=== PATIENT | female | born 1955 ===

== ENCOUNTER 2020-12-25 16:56 | Inpatient (IN) | payer MEDICARE ==
[~2020-12-25] VITALS: Ht 160 cm; Wt 90.7 kg
[2020-12-25] MEDS ORDERED: ASPIRIN 81 MG CHEW TAB PO ONE (17:15)
[2020-12-25 17:28] LABS: BASOPHILS % 0.3 % (0.0-1.0); HEMATOCRIT 38.2 % (34.2-44.1); HEMOGLOBIN 11.9 g/dL (12.0-16.0); LYMPHOCYTES # (AUTO) 0.8 (1.0-3.2); LYMPHOCYTES % 6.6 % (18.0-39.1); MEAN CORPUSCULAR HEMOGLOBIN 27.8 pg (28-32); MEAN CORPUSCULAR HGB CONC 31.2 g/dL (31-35); MEAN CORPUSCULAR VOLUME 89.3 fL (81-99); MONOCYTES # (AUTO) 1.2 (0.2-0.8); MONOCYTES % 10.2 % (4.4-11.3); NEUTROPHILS # (AUTO) 9.3 (2.1-6.9); NEUTROPHILS % 80.8 % (38.7-80.0); PLATELET COUNT 517 x10e3/uL (140-360); RED BLOOD COUNT 4.28 x10e6/uL (3.6-5.1); RED CELL DISTRIBUTION WIDTH 12.6 % (11.7-14.4)
[2020-12-25] MEDS ORDERED: SODIUM CHLORIDE 0.9% 1000ML 1,000 ML IV STA (17:37)
[2020-12-25 17:46] LABS: ABG PH 7.27 (7.35-7.45)
[2020-12-25 17:47] LABS: ABG HCO3 7 mmol/L (22-26); ABG PCO2 16 mmHg (35-45); ABG PO2 274 mmHg (80-105); ABG TCO2 8
[2020-12-25 17:49] LABS: CLARITY,URINE HAZY (CLEAR); COLOR,URINE YELLOW (YELLOW)
[2020-12-25 17:50] LABS: KETONES,URINE 1+ (NEGATIVE); LEUKOCYTE ESTERASE ,URINE LARGE (NEGATIVE); NITRITE,URINE NEGATIVE (NEGATIVE); PROTEIN,URINE DIPSTICK 2+ (NEGATIVE); URINE UROBILINOGEN 0.2 mg/dL (0.2 - 1)
[2020-12-25 17:51] LABS: ALBUMIN 3.1 g/dL (3.5-5.0); ALBUMIN/GLOBULIN RATIO 0.5 (0.8-2.0); ALKALINE PHOSPHATASE 95 IU/L (40-150); ANION GAP 39.7 mmol/L (8-16); BLOOD UREA NITROGEN 43 mg/dL (7-26); BUN/CREATININE RATIO 14 (6-25); CALCIUM 9.9 mg/dL (8.4-10.2); CHLORIDE 91 mmol/L (98-107); CREATINE KINASE 57 IU/L (29-168); CREATININE, SERUM 3.12 mg/dL (0.57-1.11); EST GLOMERULAR FILTRATION RATE 15 ML/MIN (60-); POTASSIUM 5.7 mmol/L (3.5-5.1); SODIUM 132 mmol/L (136-145)
[2020-12-25 17:54] LABS: ALANINE AMINOTRANSFERASE < 6 IU/L (0-55); BACTERIA,URINE MANY /HPF; EPITHELIAL CELLS,URINE FEW /LPF; WBC,URINE (MAN) >50 /HPF (0-5)
[2020-12-25 17:55] LABS: AMORPHOUS SEDIMENT,URINE MODERATE (FEW); CARBON DIOXIDE 7 mmol/L (22-29); MUCUS,URINE MANY (RARE); RBC,URINE 21-50 /HPF (0-5)
[2020-12-25 17:56] LABS: GLUCOSE 775 mg/dL (74-118); YEAST,URINE MODERATE
[2020-12-25] MEDS ORDERED: SODIUM CHLORIDE 0.9% 1000ML 1,000 ML IV ONE (18:00)
[2020-12-25 18:03] LABS: BAND NEUTROPHILS % (MANUAL) 3 %; LYMPHOCYTES % (MANUAL) 8 % (19-48); MONOCYTES % (MANUAL) 1 % (3.4-9.0); MYELOCYTES % (MANUAL) 2 % (0-0); NEUTROPHILS % (MANUAL) 86 % (40-74); NUCLEATED RED BLOOD CELLS 1
[2020-12-25 18:04] LABS: PLATELET ESTIMATE ADEQUATE; PLATELET MORPHOLOGY COMMENT NORMAL; RBC MORPHOLOGY COMMENT NORMAL
[2020-12-25] MEDS ORDERED: DEXTROSE 5%/0.45% SOD CHL 1,000 ML IV SCH (18:15)
[2020-12-25] MEDS ORDERED: ZOLPIDEM TARTRATE 5 MG TAB PO PRN (18:15)
[2020-12-25] MEDS ORDERED: MAGNESIUM SULF 1GRAM/DEXTROSE 100 ML IV PRN (18:15)
[2020-12-25] MEDS ORDERED: POTASSIUM CHLORIDE 20MEQ/100ML 200 ML IV PRN (18:15)
[2020-12-25] MEDS ORDERED: POTASSIUM CHLORIDE 20MEQ/100ML 100 ML INJ PRN (18:15)
[2020-12-25] MEDS ORDERED: INSULIN REGULAR, HUMAN 3ML VL 100 UNIT in SODIUM CHLORIDE 0.9% 100 ML IV SCH ×2 (18:15)
[2020-12-25] MEDS ORDERED: ACETAMINOPHEN 325 MG TAB PO PRN (18:15)
[2020-12-25] MEDS: SODIUM CHLORIDE 0.9% 1000ML 1,000 ML IV SCH ×2 (18:33→22:15)
[2020-12-25] MEDS ORDERED: INSULIN REGULAR, HUMAN 100 UNIT/1 ML ONE (18:48)
[2020-12-25] MEDS ORDERED: SODIUM CHLORIDE 0.9% 100 ML ONE (18:48)
[2020-12-25] MEDS ORDERED: SODIUM CHLORIDE 0.9% 1000ML 1,000 ML IV SCH (19:00)
[2020-12-25] MEDS: CEFEPIME 1 GM in SODIUM CHLORIDE 0.9% 50ML 50 ML IV SCH (20:37)
[2020-12-25] MEDS: HEPARIN SOD (PORCINE) 5,000 UNIT/ML VIAL SC SCH (20:44)
[2020-12-25 20:55] LABS: ANION GAP 29.8 mmol/L (8-16); CALCIUM 8.6 mg/dL (8.4-10.2); CREATININE, SERUM 2.33 mg/dL (0.57-1.11); MAGNESIUM 1.3 MG/DL (1.3-2.1); POTASSIUM 3.8 mmol/L (3.5-5.1)
[2020-12-26 01:03] LABS: ALBUMIN 2.5 g/dL (3.5-5.0); ALBUMIN/GLOBULIN RATIO 0.5 (0.8-2.0); ALKALINE PHOSPHATASE 75 IU/L (40-150); ANION GAP 19.8 mmol/L (8-16); BLOOD UREA NITROGEN 36 mg/dL (7-26); BUN/CREATININE RATIO 19 (6-25); CALCIUM 8.9 mg/dL (8.4-10.2); CARBON DIOXIDE 17 mmol/L (22-29); CHLORIDE 108 mmol/L (98-107); CREATININE, SERUM 1.91 mg/dL (0.57-1.11); EST GLOMERULAR FILTRATION RATE 26 ML/MIN (60-); GLUCOSE 90 mg/dL (74-118); POTASSIUM 3.8 mmol/L (3.5-5.1); SODIUM 141 mmol/L (136-145)
[2020-12-26 01:04] LABS: ALANINE AMINOTRANSFERASE < 6 IU/L (0-55)
[2020-12-26 01:31] LABS: CREATINE KINASE MB 4.2 ng/mL (0-5.0)
[2020-12-26] MEDS ORDERED: DEXTROSE 50% SYRINGE 50 ML IV ONE (03:05)
[2020-12-26 06:26] LABS: BASOPHILS % 0.3 % (0.0-1.0); EOSINOPHILS % 0.1 % (0.0-6.0); HEMATOCRIT 30.4 % (34.2-44.1); HEMOGLOBIN 9.9 g/dL (12.0-16.0); LYMPHOCYTES # (AUTO) 0.8 (1.0-3.2); LYMPHOCYTES % 5.8 % (18.0-39.1); MEAN CORPUSCULAR HEMOGLOBIN 27.7 pg (28-32); MEAN CORPUSCULAR HGB CONC 32.6 g/dL (31-35); MEAN CORPUSCULAR VOLUME 84.9 fL (81-99); MONOCYTES % 7.6 % (4.4-11.3); NEUTROPHILS # (AUTO) 11.6 (2.1-6.9); NEUTROPHILS % 84.8 % (38.7-80.0); PLATELET COUNT 420 x10e3/uL (140-360); RED BLOOD COUNT 3.58 x10e6/uL (3.6-5.1); RED CELL DISTRIBUTION WIDTH 12.3 % (11.7-14.4)
[2020-12-26 07:00] LABS: ALBUMIN 2.2 g/dL (3.5-5.0); ALBUMIN/GLOBULIN RATIO 0.5 (0.8-2.0); ALKALINE PHOSPHATASE 66 IU/L (40-150); ANION GAP 14.1 mmol/L (8-16); BLOOD UREA NITROGEN 33 mg/dL (7-26); BUN/CREATININE RATIO 21 (6-25); CALCIUM 8.7 mg/dL (8.4-10.2); CARBON DIOXIDE 20 mmol/L (22-29); CHLORIDE 109 mmol/L (98-107); CREATININE, SERUM 1.55 mg/dL (0.57-1.11); EST GLOMERULAR FILTRATION RATE 34 ML/MIN (60-); GLUCOSE 82 mg/dL (74-118); POTASSIUM 3.1 mmol/L (3.5-5.1); SODIUM 140 mmol/L (136-145)
[2020-12-26] MEDS ORDERED: DOCUSATE SODIUM 100 MG CAP PO PRN (07:00)
[2020-12-26] MEDS ORDERED: ONDANSETRON HCL INJ 2MG/ML 2ML 2 MG/ML VIAL IV PRN (07:00)
[2020-12-26 07:22] LABS: ALANINE AMINOTRANSFERASE < 6 IU/L (0-55)
[2020-12-26 08:01] LABS: CHOL/HDL RATIO 6.2 (3.0-3.6)
[2020-12-26] MEDS: DEXAMETHASONE SOD PHOS 10 MG/1 ML VIAL IV SCH (08:04)
[2020-12-26] MEDS: ZINC SULFATE 220 MG CAP PO SCH (08:04)
[2020-12-26] MEDS: CEFEPIME 1 GM in SODIUM CHLORIDE 0.9% 50ML 50 ML IV SCH ×2 (08:04→20:45)
[2020-12-26] MEDS: ASCORBIC ACID 500 MG TAB PO SCH ×2 (08:04→16:46)
[2020-12-26 09:16] LABS: INR 1.03; PROTHROMBIN TIME 13.7 seconds (11.9-14.5)
[2020-12-26 09:17] LABS: PARTIAL THROMBOPLASTIN TIME 29.7 seconds (23.8-35.5)
[2020-12-26] MEDS ORDERED: INSULIN GLARGINE 100 UNITS/ML VIAL SQ ONE (10:00)
[2020-12-26 10:27] LABS: ANION GAP 14.8 mmol/L (8-16); CALCIUM 8.7 mg/dL (8.4-10.2); CREATININE, SERUM 1.38 mg/dL (0.57-1.11); MAGNESIUM 1.3 MG/DL (1.3-2.1); POTASSIUM 3.8 mmol/L (3.5-5.1)
[2020-12-26 10:45] LABS: CREATINE KINASE MB 5.1 ng/mL (0-5.0)
[2020-12-26] MEDS: HEPARIN SOD (PORCINE) 5,000 UNIT/ML VIAL SC SCH ×2 (13:07→20:45)
[2020-12-26] MEDS: INSULIN ASPART 70/30 100 UNITS/ML VIAL SC SCH ×2 (13:08→16:40)
[2020-12-26 13:16] VITALS: BP 142/96
[2020-12-26] MEDS ORDERED: TOPIRAMATE25 MG PO (14:16)
[2020-12-26] MEDS ORDERED: CYCLOBENZAPRINE10 MG PO (14:16)
[2020-12-26] MEDS ORDERED: PROTONIX20 MG PO (14:16)
[2020-12-26] MEDS ORDERED: METOPROLOL TART25 MG PO (14:16)
[2020-12-26] MEDS ORDERED: ATORVASTATIN CA20 MG PO (14:16)
[2020-12-26] MEDS ORDERED: SUMATRIPTAN SUC25 MG PO (14:16)
[2020-12-26 14:47] VITALS: BP 121/87
[2020-12-26 14:48] LABS: CALCIUM 8.9 mg/dL (8.4-10.2); CREATININE, SERUM 1.43 mg/dL (0.57-1.11); MAGNESIUM 1.3 MG/DL (1.3-2.1)
[2020-12-26 15:47] VITALS: BP 121/87
[2020-12-26 16:17] LABS: ABG HCO3 18 mmol/L (22-26); ABG PCO2 34 mmHg (35-45); ABG PH 7.33 (7.35-7.45); ABG PO2 160 mmHg (80-105); ABG TCO2 19
[2020-12-26] MEDS: METOPROLOL TARTRATE 25 MG TAB PO SCH (16:45)
[2020-12-26] MEDS ORDERED: SODIUM CHLORIDE 0.9% 50ML 50 ML ONE (17:08)
[2020-12-26 19:20] VITALS: BP 148/76
[2020-12-26 20:45] VITALS: BP 148/76
[2020-12-27] VITALS (8 sets, daily range): BP systolic 134–150; BP diastolic 79–98
[2020-12-27 05:40] LABS: BASOPHILS % 0.2 % (0.0-1.0); HEMATOCRIT 33.5 % (34.2-44.1); HEMOGLOBIN 10.9 g/dL (12.0-16.0); LYMPHOCYTES # (AUTO) 0.9 (1.0-3.2); LYMPHOCYTES % 8.5 % (18.0-39.1); MEAN CORPUSCULAR HEMOGLOBIN 27.5 pg (28-32); MEAN CORPUSCULAR HGB CONC 32.5 g/dL (31-35); MEAN CORPUSCULAR VOLUME 84.6 fL (81-99); MONOCYTES # (AUTO) 0.6 (0.2-0.8); MONOCYTES % 5.1 % (4.4-11.3); NEUTROPHILS # (AUTO) 9.3 (2.1-6.9); NEUTROPHILS % 84.5 % (38.7-80.0); PLATELET COUNT 436 x10e3/uL (140-360); RED BLOOD COUNT 3.96 x10e6/uL (3.6-5.1); RED CELL DISTRIBUTION WIDTH 12.4 % (11.7-14.4)
[2020-12-27 06:09] LABS: ALBUMIN 2.3 g/dL (3.5-5.0); ALBUMIN/GLOBULIN RATIO 0.5 (0.8-2.0); ALKALINE PHOSPHATASE 80 IU/L (40-150); ANION GAP 21.9 mmol/L (8-16); BLOOD UREA NITROGEN 29 mg/dL (7-26); BUN/CREATININE RATIO 24 (6-25); CALCIUM 8.9 mg/dL (8.4-10.2); CARBON DIOXIDE 18 mmol/L (22-29); CHLORIDE 101 mmol/L (98-107); CREATININE, SERUM 1.23 mg/dL (0.57-1.11); EST GLOMERULAR FILTRATION RATE 44 ML/MIN (60-); GLUCOSE 387 mg/dL (74-118); POTASSIUM 3.9 mmol/L (3.5-5.1); SODIUM 137 mmol/L (136-145)
[2020-12-27 06:25] LABS: ALANINE AMINOTRANSFERASE < 6 IU/L (0-55)
[2020-12-27] MEDS: DEXAMETHASONE SOD PHOS 10 MG/1 ML VIAL IV SCH (06:25)
[2020-12-27] MEDS: ZINC SULFATE 220 MG CAP PO SCH (09:19)
[2020-12-27] MEDS: CEFEPIME 1 GM in SODIUM CHLORIDE 0.9% 50ML 50 ML IV SCH ×2 (09:19→21:10)
[2020-12-27] MEDS: METOPROLOL TARTRATE 25 MG TAB PO SCH ×2 (09:19→17:17)
[2020-12-27] MEDS: ASCORBIC ACID 500 MG TAB PO SCH ×2 (09:19→17:17)
[2020-12-27] MEDS: INSULIN LISPRO 100 UNIT/1 ML 3ML VIAL SQ SCH ×3 (09:20→16:45)
[2020-12-27] MEDS: HEPARIN SOD (PORCINE) 5,000 UNIT/ML VIAL SC SCH ×2 (09:25→20:10)
[2020-12-27] MEDS: INSULIN GLARGINE 100 UNITS/ML VIAL SQ SCH (09:26)
[2020-12-27] MEDS ORDERED: REMDESIVIR 200MG/NS 100ML 200 MG in SODIUM CHLORIDE 0.9% 100 ML 100 ML IV ONE (16:00)
[2020-12-28] VITALS (8 sets, daily range): BP systolic 95–151; BP diastolic 67–98
[2020-12-28] MEDS: DEXAMETHASONE SOD PHOS 10 MG/1 ML VIAL IV SCH (06:24)
[2020-12-28] MEDS: INSULIN LISPRO 100 UNIT/1 ML 3ML VIAL SQ SCH ×3 (07:30→16:30)
[2020-12-28] MEDS: INSULIN GLARGINE 100 UNITS/ML VIAL SQ SCH (09:00)
[2020-12-28] MEDS: HEPARIN SOD (PORCINE) 5,000 UNIT/ML VIAL SC SCH ×2 (09:00→20:29)
[2020-12-28] MEDS: METOPROLOL TARTRATE 25 MG TAB PO SCH ×2 (09:31→17:23)
[2020-12-28] MEDS: CEFEPIME 1 GM in SODIUM CHLORIDE 0.9% 50ML 50 ML IV SCH ×2 (09:31→20:29)
[2020-12-28] MEDS: ASCORBIC ACID 500 MG TAB PO SCH ×2 (09:31→17:23)
[2020-12-28] MEDS: ZINC SULFATE 220 MG CAP PO SCH (09:31)
[2020-12-28 11:25] LABS: HEMATOCRIT 40.8 % (34.2-44.1); HEMOGLOBIN 13.2 g/dL (12.0-16.0); MEAN CORPUSCULAR HEMOGLOBIN 27.7 pg (28-32); MEAN CORPUSCULAR VOLUME 85.5 fL (81-99); RED BLOOD COUNT 4.77 x10e6/uL (3.6-5.1)
[2020-12-28 11:26] LABS: BASOPHILS % 0.2 % (0.0-1.0); LYMPHOCYTES % 8.6 % (18.0-39.1); MEAN CORPUSCULAR HGB CONC 32.4 g/dL (31-35); MONOCYTES # (AUTO) 0.4 (0.2-0.8); MONOCYTES % 3.7 % (4.4-11.3); NEUTROPHILS # (AUTO) 9.6 (2.1-6.9); NEUTROPHILS % 86.2 % (38.7-80.0); PLATELET COUNT 465 x10e3/uL (140-360); RED CELL DISTRIBUTION WIDTH 12.5 % (11.7-14.4)
[2020-12-28 12:09] LABS: ANION GAP 19.4 mmol/L (8-16); CALCIUM 9.7 mg/dL (8.4-10.2); CREATININE, SERUM 1.07 mg/dL (0.57-1.11); POTASSIUM 3.4 mmol/L (3.5-5.1)
[2020-12-28] MEDS ORDERED: REMDESIVIR 100MG/NS 100ML 100 MG in SODIUM CHLORIDE 0.9% 100 ML 100 ML IV SCH (14:00)
[2020-12-28] MEDS: ATORVASTATIN 40 MG TAB PO SCH (20:29)
[2020-12-28] MEDS: CYCLOBENZAPRINE HCL 10 MG TAB PO SCH (21:57)
[2020-12-29] VITALS (7 sets, daily range): BP systolic 118–153; BP diastolic 71–100
[2020-12-29] MEDS: DEXAMETHASONE SOD PHOS 10 MG/1 ML VIAL IV SCH (05:26)
[2020-12-29] MEDS: ZINC SULFATE 220 MG CAP PO SCH (09:42)
[2020-12-29] MEDS: METOPROLOL TARTRATE 25 MG TAB PO SCH ×2 (09:42→17:47)
[2020-12-29] MEDS: ASPIRIN 81 MG ENTERIC COATED PO SCH (09:42)
[2020-12-29] MEDS: CLOPIDOGREL BISULFATE 75 MG TAB PO SCH (09:42)
[2020-12-29] MEDS: CEFEPIME 1 GM in SODIUM CHLORIDE 0.9% 50ML 50 ML IV SCH ×2 (09:42→21:00)
[2020-12-29] MEDS: ASCORBIC ACID 500 MG TAB PO SCH ×2 (09:42→17:47)
[2020-12-29] MEDS: INSULIN GLARGINE 100 UNITS/ML VIAL SQ SCH (09:43)
[2020-12-29] MEDS: INSULIN LISPRO 100 UNIT/1 ML 3ML VIAL SQ SCH ×3 (09:45→17:47)
[2020-12-29] MEDS: HEPARIN SOD (PORCINE) 5,000 UNIT/ML VIAL SC SCH ×2 (09:45→21:00)
[2020-12-29] MEDS: ATORVASTATIN 40 MG TAB PO SCH (21:00)
[2020-12-29] MEDS: CYCLOBENZAPRINE HCL 10 MG TAB PO SCH (21:00)
[2020-12-30] VITALS (9 sets, daily range): BP systolic 100–125; BP diastolic 58–99
[2020-12-30] MEDS: INSULIN LISPRO 100 UNIT/1 ML 3ML VIAL SQ SCH ×3 (07:30→16:30)
[2020-12-30] MEDS: DEXAMETHASONE SOD PHOS 10 MG/1 ML VIAL IV SCH (09:00)
[2020-12-30] MEDS: CEFEPIME 1 GM in SODIUM CHLORIDE 0.9% 50ML 50 ML IV SCH ×2 (09:00→22:23)
[2020-12-30] MEDS: HEPARIN SOD (PORCINE) 5,000 UNIT/ML VIAL SC SCH ×2 (09:00→22:25)
[2020-12-30] MEDS: INSULIN GLARGINE 100 UNITS/ML VIAL SQ SCH (09:00)
[2020-12-30] MEDS: ASPIRIN 81 MG ENTERIC COATED PO SCH (09:49)
[2020-12-30] MEDS: ASCORBIC ACID 500 MG TAB PO SCH ×2 (09:49→17:10)
[2020-12-30] MEDS: CLOPIDOGREL BISULFATE 75 MG TAB PO SCH (09:49)
[2020-12-30] MEDS: ZINC SULFATE 220 MG CAP PO SCH (09:49)
[2020-12-30] MEDS: METOPROLOL TARTRATE 25 MG TAB PO SCH ×2 (09:49→17:11)
[2020-12-30] MEDS: REMDESIVIR 100MG/NS 100ML 100 MG in SODIUM CHLORIDE 0.9% 100 ML 100 ML IV SCH (15:14)
[2020-12-30 15:29] LABS: BASOPHILS % 0.3 % (0.0-1.0); HEMATOCRIT 38.2 % (34.2-44.1); HEMOGLOBIN 12.1 g/dL (12.0-16.0); LYMPHOCYTES # (AUTO) 1.3 (1.0-3.2); LYMPHOCYTES % 9.3 % (18.0-39.1); MEAN CORPUSCULAR HEMOGLOBIN 27.6 pg (28-32); MEAN CORPUSCULAR HGB CONC 31.7 g/dL (31-35); MONOCYTES # (AUTO) 0.6 (0.2-0.8); MONOCYTES % 4.3 % (4.4-11.3); NEUTROPHILS # (AUTO) 11.8 (2.1-6.9); NEUTROPHILS % 82.1 % (38.7-80.0); PLATELET COUNT 364 x10e3/uL (140-360); RED BLOOD COUNT 4.39 x10e6/uL (3.6-5.1); RED CELL DISTRIBUTION WIDTH 12.5 % (11.7-14.4)
[2020-12-30 15:49] LABS: ALANINE AMINOTRANSFERASE < 6 IU/L (0-55); ALBUMIN 2.3 g/dL (3.5-5.0); ALBUMIN/GLOBULIN RATIO 0.5 (0.8-2.0); ALKALINE PHOSPHATASE 83 IU/L (40-150); BLOOD UREA NITROGEN 50 mg/dL (7-26); BUN/CREATININE RATIO 45 (6-25); CALCIUM 8.9 mg/dL (8.4-10.2); CARBON DIOXIDE 22 mmol/L (22-29); CHLORIDE 100 mmol/L (98-107); CREATININE, SERUM 1.11 mg/dL (0.57-1.11); EST GLOMERULAR FILTRATION RATE 49 ML/MIN (60-); GLUCOSE 255 mg/dL (74-118); SODIUM 137 mmol/L (136-145)
[2020-12-30] MEDS: ATORVASTATIN 40 MG TAB PO SCH (22:23)
[2020-12-30] MEDS: CYCLOBENZAPRINE HCL 10 MG TAB PO SCH (22:23)
[2020-12-31] VITALS (8 sets, daily range): BP systolic 119–137; BP diastolic 58–93
[2020-12-31] MEDS: DEXAMETHASONE SOD PHOS 10 MG/1 ML VIAL IV SCH (05:30)
[2020-12-31] MEDS: INSULIN LISPRO 100 UNIT/1 ML 3ML VIAL SQ SCH ×3 (08:15→17:20)
[2020-12-31] MEDS: INSULIN GLARGINE 100 UNITS/ML VIAL SQ SCH (08:15)
[2020-12-31] MEDS: HEPARIN SOD (PORCINE) 5,000 UNIT/ML VIAL SC SCH ×2 (08:15→20:53)
[2020-12-31 08:33] LABS: ANION GAP 15.6 mmol/L (8-16); CALCIUM 8.5 mg/dL (8.4-10.2); CREATININE, SERUM 0.82 mg/dL (0.57-1.11); POTASSIUM 4.6 mmol/L (3.5-5.1)
[2020-12-31] MEDS: CEFEPIME 1 GM in SODIUM CHLORIDE 0.9% 50ML 50 ML IV SCH ×2 (09:00→20:49)
[2020-12-31] MEDS: ASPIRIN 81 MG ENTERIC COATED PO SCH (09:09)
[2020-12-31] MEDS: METOPROLOL TARTRATE 25 MG TAB PO SCH ×2 (09:10→17:03)
[2020-12-31] MEDS: ASCORBIC ACID 500 MG TAB PO SCH ×2 (09:11→17:03)
[2020-12-31] MEDS: CLOPIDOGREL BISULFATE 75 MG TAB PO SCH (09:11)
[2020-12-31] MEDS: ZINC SULFATE 220 MG CAP PO SCH (09:11)
[2020-12-31] MEDS: REMDESIVIR 100MG/NS 100ML 100 MG in SODIUM CHLORIDE 0.9% 100 ML 100 ML IV SCH (15:03)
[2020-12-31] MEDS: CYCLOBENZAPRINE HCL 10 MG TAB PO SCH (20:50)
[2020-12-31] MEDS: ATORVASTATIN 40 MG TAB PO SCH (20:50)
[2021-01-01] VITALS (9 sets, daily range): BP systolic 100–136; BP diastolic 53–81
[2021-01-01] MEDS: DEXAMETHASONE SOD PHOS 10 MG/1 ML VIAL IV SCH (05:35)
[2021-01-01] MEDS: INSULIN LISPRO 100 UNIT/1 ML 3ML VIAL SQ SCH ×3 (08:30→17:20)
[2021-01-01 10:40] LABS: BASOPHILS % 0.1 % (0.0-1.0); EOSINOPHILS % 0.1 % (0.0-6.0); HEMATOCRIT 39.6 % (34.2-44.1); HEMOGLOBIN 12.4 g/dL (12.0-16.0); LYMPHOCYTES # (AUTO) 1.6 (1.0-3.2); LYMPHOCYTES % 11.6 % (18.0-39.1); MEAN CORPUSCULAR HEMOGLOBIN 27.4 pg (28-32); MEAN CORPUSCULAR HGB CONC 31.3 g/dL (31-35); MEAN CORPUSCULAR VOLUME 87.4 fL (81-99); MONOCYTES # (AUTO) 0.5 (0.2-0.8); MONOCYTES % 3.8 % (4.4-11.3); NEUTROPHILS # (AUTO) 10.8 (2.1-6.9); NEUTROPHILS % 79.2 % (38.7-80.0); PLATELET COUNT 314 x10e3/uL (140-360); RED BLOOD COUNT 4.53 x10e6/uL (3.6-5.1); RED CELL DISTRIBUTION WIDTH 12.6 % (11.7-14.4)
[2021-01-01 11:17] LABS: ALBUMIN 2.4 g/dL (3.5-5.0); ALBUMIN/GLOBULIN RATIO 0.6 (0.8-2.0); ANION GAP 17.5 mmol/L (8-16); CALCIUM 8.4 mg/dL (8.4-10.2); CREATININE, SERUM 0.88 mg/dL (0.57-1.11); POTASSIUM 4.5 mmol/L (3.5-5.1)
[2021-01-01] MEDS: CEFEPIME 1 GM in SODIUM CHLORIDE 0.9% 50ML 50 ML IV SCH ×2 (11:43→20:12)
[2021-01-01] MEDS: HEPARIN SOD (PORCINE) 5,000 UNIT/ML VIAL SC SCH ×2 (11:46→20:13)
[2021-01-01] MEDS: INSULIN GLARGINE 100 UNITS/ML VIAL SQ SCH (11:47)
[2021-01-01] MEDS: ASPIRIN 81 MG ENTERIC COATED PO SCH (11:50)
[2021-01-01] MEDS: CLOPIDOGREL BISULFATE 75 MG TAB PO SCH (11:52)
[2021-01-01] MEDS: METOPROLOL TARTRATE 25 MG TAB PO SCH ×2 (11:52→17:51)
[2021-01-01] MEDS: ZINC SULFATE 220 MG CAP PO SCH (11:52)
[2021-01-01] MEDS: ASCORBIC ACID 500 MG TAB PO SCH ×2 (11:52→17:51)
[2021-01-01] MEDS: REMDESIVIR 100MG/NS 100ML 100 MG in SODIUM CHLORIDE 0.9% 100 ML 100 ML IV SCH (17:51)
[2021-01-01] MEDS ORDERED: SODIUM CHLORIDE 0.9% 250ML 250 ML ONE (17:52)
[2021-01-01] MEDS: ATORVASTATIN 40 MG TAB PO SCH (20:12)
[2021-01-01] MEDS: CYCLOBENZAPRINE HCL 10 MG TAB PO SCH (20:12)
[2021-01-02] VITALS (8 sets, daily range): BP systolic 111–142; BP diastolic 52–80
[2021-01-02] MEDS: DEXAMETHASONE SOD PHOS 10 MG/1 ML VIAL IV SCH (05:38)
[2021-01-02] MEDS ORDERED: PLAVIX75 MG PO (06:24)
[2021-01-02] MEDS ORDERED: ASCORBIC ACID500 MG PO (06:24)
[2021-01-02] MEDS ORDERED: Insulin Lispro SQ (06:24)
[2021-01-02] MEDS ORDERED: LOPRESSOR25 MG PO (06:24)
[2021-01-02] MEDS ORDERED: ASPIRIN EC81 MG PO (06:24)
[2021-01-02] MEDS ORDERED: Atorvastatin PO (06:24)
[2021-01-02] MEDS ORDERED: Insulin Glargine SQ (06:24)
[2021-01-02] MEDS ORDERED: ZINC SULFATE50 MG PO (06:24)
[2021-01-02] MEDS ORDERED: PREDNISONE20 MG PO (06:26)
[2021-01-02] MEDS: INSULIN LISPRO 100 UNIT/1 ML 3ML VIAL SQ SCH ×3 (08:48→18:08)
[2021-01-02] MEDS: INSULIN GLARGINE 100 UNITS/ML VIAL SQ SCH (08:49)
[2021-01-02] MEDS: CLOPIDOGREL BISULFATE 75 MG TAB PO SCH (09:10)
[2021-01-02] MEDS: ASPIRIN 81 MG ENTERIC COATED PO SCH (09:10)
[2021-01-02] MEDS: METOPROLOL TARTRATE 25 MG TAB PO SCH ×2 (09:10→18:07)
[2021-01-02] MEDS: ASCORBIC ACID 500 MG TAB PO SCH ×2 (09:10→18:07)
[2021-01-02] MEDS: ZINC SULFATE 220 MG CAP PO SCH (09:10)
[2021-01-02] MEDS: CEFEPIME 1 GM in SODIUM CHLORIDE 0.9% 50ML 50 ML IV SCH ×2 (09:55→21:50)
[2021-01-02] MEDS: REMDESIVIR 100MG/NS 100ML 100 MG in SODIUM CHLORIDE 0.9% 100 ML 100 ML IV SCH (14:55)
[2021-01-02] MEDS ORDERED: ONDANSETRON HCL 4 MG ORAL DISINTEGRATING TAB PO PRN (18:45)
[2021-01-02] MEDS: CYCLOBENZAPRINE HCL 10 MG TAB PO SCH (21:00)
[2021-01-02] MEDS: ATORVASTATIN 40 MG TAB PO SCH (21:50)
[2021-01-03 01:02] VITALS: BP 125/73
[2021-01-03 05:21] VITALS: BP 130/80
[2021-01-03] MEDS: DEXAMETHASONE SOD PHOS 10 MG/1 ML VIAL IV SCH (05:38)
[2021-01-03 08:22] VITALS: BP 135/68
[2021-01-03 08:28] VITALS: BP 135/68
== END 2021-01-03 09:00 | disposition home health service (06) | DRG 871 ==
LOC: ER 17:06 → ERHOLD 17:36 → IMCU 12-26 12:33
PROVIDERS: ADMIT Internal Medicine; ATTEND Internal Medicine
PROC: 8E0ZXY6 Isolation (ICD-10-PCS; principal; 2020-12-25)
PROC: XW043E5 Introduction of Remdesivir Anti-infective into Central Vein, Percutaneous Approach, New Technology Group 5 (ICD-10-PCS; 2020-12-27)
PROC: 02HV33Z Insertion of Infusion Device into Superior Vena Cava, Percutaneous Approach (ICD-10-PCS; 2020-12-30)
DX: A41.9 Sepsis, unspecified organism (principal); E11.10 Type 2 diabetes mellitus with ketoacidosis without coma; U07.1 COVID-19; J96.00 Acute respiratory failure, unspecified whether with hypoxia or hypercapnia; J12.82 Pneumonia due to coronavirus disease 2019; I21.A1 Myocardial infarction type 2; N17.9 Acute kidney failure, unspecified; N39.0 Urinary tract infection, site not specified; Z79.899 Other long term (current) drug therapy; E66.9 Obesity, unspecified; Z68.35 Body mass index [BMI] 35.0-35.9, adult; E78.5 Hyperlipidemia, unspecified
CPT/HCPCS: 36415; 36600; 51700; 71045; 80048; 80053; 80061; 81001; 82550; 82553; 82805; 82948; 83036; 83735; 84484; 85025; 85610; 85730; 87040; 87086; 93005; 93306; 97139; 99251; 99285; J0456; J0692; J1100; J1644; J1815; J1817; J2405; J3475; J7030; J7050; J7799; U0002

== ENCOUNTER → 2022-01-12 | Outpatient (CLI) | payer MEDICARE ==
[~2022-01-12] MED LIST: ASCORBIC ACID500 MG PO; ASPIRIN EC81 MG PO; ATORVASTATIN CA20 MG PO; Atorvastatin PO; CYCLOBENZAPRINE10 MG PO; IOPAMIDOL 370 MG/ML 100 ML INFUS..BTL INJ ONE; Insulin Glargine SQ; Insulin Lispro SQ; LOPRESSOR25 MG PO; METOPROLOL TART25 MG PO; PLAVIX75 MG PO; PREDNISONE20 MG PO; PROTONIX20 MG PO; SODIUM CHLORIDE 0.9% 250ML 250 ML ONE; SODIUM CHLORIDE 0.9% 500ML 500 ML ONE; SUMATRIPTAN SUC25 MG PO; TOPIRAMATE25 MG PO; ZINC SULFATE50 MG PO
[2022-01-12 10:55] LABS: CREATININE, SERUM 1.05 mg/dL (0.57-1.11)
== END ==
LOC: CT 09:58
PROVIDERS: ATTEND Urology
DX: R31.0 Gross hematuria (principal)
CPT/HCPCS: 36415; 74178; 82565; 84520; J7040; J7050; Q9967